=== PATIENT | female | born 1980 ===

== ENCOUNTER 2022-02-17 15:45 | Outpatient (REF) | payer OTHER, SELFPAY ==
--- NOTE | 2022-02-17 14:30 | PAPFT_PTH ---
PATIENT: Linh Bay LOC: [facility] U#:[id number] AGE/SX: 41/F ROOM: RE02/17/[address]: Nina Rodriguez : 1980 BED: DIS: 02/17/2022 SPEC #: [id number] RECD: 02/18/22 12:45 STATUS: PERRY RERacquel #: [id number] NADER: 02/17/22 14:[address]: Nina Rodriguez DEPT: [facility] Cytology RECD BY: Penelope Adams Tissues: 1 - CX/ENDOCX FOR PAP SMEARS Procedures: PAP THIN PREP/[facility] Screening HPV DNA PROBE Comments: [id number] (CHLAMYDIA/GC)
--- OUTSIDE RECORDS SUMMARY | 2022-02-17 15:47 | XMS_ITS | CCD ---
:1980 Author Care Team Providers Name Role Phone Carlos TAMAYO Attending Physician Unavailable Vital Signs Unknown or Not Available. Allergies Unknown or Not Available. Procedures Unknown or Not Available. History of Immunizations Unknown or Not Available. Problems Unknown or Not Available. Results [facility] RHEON[facility]* - Collect Date/Chacorta e: 08/17/2021 11:48 Test Name Code Test Result Test Units Test Ref Range SOURCE= Anterior nasal N/A Tier- EXPOSURE N/A SARS COV2 RNA: 60173-3 NEGATIVE N/A REFERENCE RAN GE: NEGAT Active Medications Unknown or Not Available. Medications Administered During Visit Unknown or Not Available. Encounters Encounter Diagnosis Diagnosis Code Start Date Exposure to SARS-CoV-2 [id number] 08/17/2021 Social History Smoking Status Code Start Date End Date Never smoker [id number] Patient Decision Aids Unknown or Not Available. Discharge Instructions You were admitted to [facility] on 08/17/2021 09:09 with a principal diagnosis of Contact with and (suspected ) exposure to COVID-19 You had the following tests done: [facility]HEON[facility]* You were discharged from [facility] on 08/17/2021 09:09 Should you have any questions prior to d ischarge, please contact a member of your healthcare team. If you have left the spital and have any questions, please contact your primary care physician. Chief Complaint and Reason For Visit Unknown or Not Available. Function Status Unknown or Not Available. Plan of Care Unknown or Not Available. Referral/Transition of Care Unknown or Not Available.
--- OUTSIDE RECORDS SUMMARY | 2022-02-17 15:47 | XMS_ITS | CCD ---
:1980 Author Care Team Providers Name Role Phone MD RONI Attending Physician Unavailable Vital Signs Unknown or Not Available. Allergies Unknown or Not Available. Procedures Unknown or Not Available. History of Immunizations Unknown or Not Available. Problems Unknown or Not Available. Results [facility] COVID RHEON[facility] - Collect Date/Time : 05/02/2021 10:21 Test Name Code Test Result Test Units Test Ref Range SOURCE= Anterior nasal N/A Tier- TRAVEL N/A SARS COV2 RNA: 54078-4 NEGATIVE N/A REFERENCE RAN GE: NEGAT Active Medications Unknown or Not Available. Medications Administered During Visit Unknown or Not Available. Encounters Encounter Diagnosis Diagnosis Code Start Date Exposure to SARS-CoV-2 [id number] 05/02/2021 Social History Smoking Status Code Start Date End Date Never smoker [id number] Patient Decision Aids Unknown or Not Available. Discharge Instructions You were admitted to [facility] on 05/02/2021 08:34 with a principal diagnosis of Contact with and (suspected ) exposure to COVID-19 [facility] the [facility] You were discharged from [facility] on 05/02/2021 08:34 Should you have any questions prior to d ischarge, please contact a member of your healthcare team. If you have left the ho spital and have any questions, please contact your primary care physician. Chief Complaint and Reason For Visit Unknown or Not Available. Function Status Unknown or Not Available. Plan of Care Unknown or Not Available. Referral/Transition of Care Unknown or Not Available.
[2022-02-17 22:35] LABS: ALT 27 U/L (14-59); AST 25 U/L (15-37); Albumin 4.2 g/dL (3.4-5.0); Alkaline Phosphatase 47 U/L (46-116); Anion Gap 9.2 mmol/L (3-11); BUN 12 mg/dL (7-18); Bilirubin, Total 0.5 mg/dL (0.2-1.0); CO2 28.8 mmol/L (21.0-32.0); CREATININE 0.7 mg/dL (0.55-1.02); Calcium 9.1 mg/dL (8.5-10.1); Calculated LDL 106 mg/dL (<100); Chloride 103 mmol/L (98-107); Cholesterol 205 mg/dL (<200); Glucose 84 mg/dL (74-106); HDL Cholesterol 92 mg/dL (40-60); Potassium 3.8 mmol/L (3.5-5.1); Sodium 141 mmol/L (136-145); Total Protein 7.1 g/dL (6.4-8.2); Triglyceride 36 mg/dL (<150)
[2022-02-19 09:24] LABS: HIV-1/2 Ag & Ab Screen Negative (Negative)
[2022-02-19 09:28] LABS: Hepatitis C Ab w Rflx HCV PCR Negative (Negative)
[2022-02-19 14:43] LABS: Chlamydia Result Negative (Negative); GC Result Negative (Negative)
== END 2022-02-17 15:46 | disposition home or self-care (01) ==
LOC: LBN 15:45
PROVIDERS: Visit Provider Registered Nurse
DX: Z00.00 Encounter for general adult medical examination without abnormal findings (principal); Z11.4 Encounter for screening for human immunodeficiency virus [HIV]; F10.10 Alcohol abuse, uncomplicated; Z13.220 Encounter for screening for lipoid disorders; Z11.59 Encounter for screening for other viral diseases; Z12.4 Encounter for screening for malignant neoplasm of cervix; Z11.51 Encounter for screening for human papillomavirus (HPV); Z11.3 Encounter for screening for infections with a predominantly sexual mode of transmission
CPT/HCPCS: 80053; 80061; 86803; 87389; 87491; 87591; 88142; 87624